=== PATIENT | female | born 2005 | race Two or more races ===

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

== ENCOUNTER 2025-04-07 13:04 | Emergency (ER) | payer OTHER ==
[~2025-04-07] VITALS: Ht 175.3 cm; Wt 56.7 kg
[2025-04-07 14:11] VITALS: BP 107/72; O2SAT 100
[2025-04-07] MEDS ORDERED: KETOROLAC TROMETHAMINE 30 MG VIAL IV ONE (14:45)
[2025-04-07] MEDS ORDERED: KETOROLAC TROMETHAMINE 30 MG VIAL ONE (14:58)
[2025-04-07 15:29] LABS: BASO % 0.6 % (0.1-1.2); EOS # 0.34 (0.04-0.54); HEMATOCRIT 37.8 % (34.1-44.9); HEMOGLOBIN 12.8 g/dL (11.2-15.7); MONO # 0.52 (0.24-0.82); MONO % 6.1 % (4.7-12.5); NEUT # 5.89 (1.56-6.13); NEUT % 69.1 % (34.0-71.1); PLATELET COUNT 262 K/uL (163-369); RED BLOOD COUNT 4.27 M/uL (3.93-5.22); RED CELL DISTRIBUTION WIDTH 12.2 % (11.6-14.4)
[2025-04-07 15:41] LABS: BILIRUBIN TOTAL 0.6 mg/dL (0.3-1.2); CALCIUM 9.6 mg/dL (8.5-10.1); CREATININE SERUM 0.86 mg/dL (0.55-1.02); GLOBULINA 3.7 G/DL (2.4-3.5); POTASSIUM 4.09 mEq/L (3.5-5.1); TOTAL PROTEIN 7.7 gm/dL (6.4-8.2)
== END 2025-04-07 17:53 | disposition home or self-care (01) ==
LOC: EMR PED 13:14 → ER 13:14 → EMR PED 17:53
PROVIDERS: Emergency Medicine Pediatric Emergency Medicine
DX: N94.6 Dysmenorrhea, unspecified (principal)